=== PATIENT | male | born 2005 | race Two or more races ===

== ENCOUNTER 2024-02-19 22:10 | Emergency (ER) | payer MEDICAID, OTHER ==
[~2024-02-19] VITALS: Ht 170.2 cm; Wt 57.9 kg
[2024-02-20 00:04] LABS: Urine Bacteria FEW /hpf (None Seen); Urine Blood Negative /uL (Negative); Urine Clarity Clear (Clear); Urine Color Yellow (Yellow); Urine Hyaline Cast FEW /lpf (0 - 2); Urine Mucus FEW (None Seen); Urine Protein, UAD TRACE (Negative); Urine Specific Gravity 1.024 (1.001-1.035); Urine Urobilinogen 4 mg/dL (Negative); Urine WBC <1 /hpf (0 - 3)
[2024-02-20 00:10] LABS: Basophils # (auto) 0.1 10 ^3/uL (0-0.2); Basophils % (auto) 0.6 % (0.0-2.0); Eosinophils # (auto) 0 10 ^3/uL (0-0.8); Eosinophils % (auto) 0.4 % (0.0-7.0); Hematocrit 48.2 % (41.0-53.0); Lymphocytes # (auto) 2.4 10 ^3/uL (0.4-5.4); Lymphocytes % (auto) 27.7 % (10.0-50.0); Mean Corpuscular Hgb Conc. 35.2 g/dL (32.0-36.0); Mean Corpuscular Volume 90.9 fL (80.0-100.0); Monocytes # (auto) 0.6 10 ^3/uL (0-1.3); Monocytes % (auto) 6.6 % (0.0-12.0); Neutrophils # (auto) 5.7 10 ^3/uL (1.6-8.6); Neutrophils % (auto) 64.7 % (37.0-80.0); Nucleated Red Blood Cells % 0.1 %; White Blood Cell 8.8 10^3/uL (4.4-10.8)
[2024-02-20 00:28] LABS: Alanine Aminotransferase < 9 U/L (7-40); Albumin 5.1 g/dL (3.2-4.8); Alkaline Phosphatase 60 U/L (46-116); Anion Gap 9 (5-15); Aspartate Aminotransferase 10 U/L (13-40); BUN/Creatinine Ratio 13.2 (10.0-20.0); Bilirubin, Total 1.3 mg/dL (0.2-1.0); Blood Urea Nitrogen 10 mg/dL (9-23); Calcium 10.4 mg/dL (8.7-10.4); Carbon Dioxide 28 mmol/L (20-30); Chloride 102 mmol/L (98-107); Glucose 104 mg/dL (74-106); Lipase 27 U/L (12-53); Potassium 3.1 mmol/L (3.5-5.1); Sodium 139 mmol/L (136-145); Total Protein 7.8 g/dL (5.7-8.2)
[2024-02-20 00:52] LABS: Rapid Strep A Screen-Throat Positive
[2024-02-20] MEDS: DexAMETHasone SOD PHOS 10MG/1ML VIAL INJ IM ONE (02:43)
[2024-02-20] MEDS: cefTRIAXone SOD 1,000 MG VL IM ONE (02:43)
[2024-02-20 03:17] VITALS: BP 134/79; PULSE 78; RESP 18; TEMP 98; O2SAT 99
[2024-02-20] MEDS ORDERED: PRED20TA2 PO (04:08)
[2024-02-20] MEDS ORDERED: DICY10CA PO (04:08)
[2024-02-20] MEDS ORDERED: ZOFR4T PO (04:08)
[2024-02-20] MEDS ORDERED: BACDST PO (04:08)
[2024-02-20] MEDS ORDERED: FAMO20TA10 PO (04:08)
[2024-02-20] MEDS: POTASSIUM CHL 20 Meq TABLET PO ONE (04:12)
[2024-02-20] MEDS: AZITHROMYCIN 250 MG TAB PO ONE (04:22)
[2024-02-21] MEDS ORDERED: METO-281 PO (19:29)
[2024-02-21] MEDS ORDERED: DOXY100C PO (19:29)
[2024-02-21] MEDS ORDERED: BISM262C44 PO (21:09)
[2024-02-22 08:06] LABS: Chlamydia Trachomatis, NAA Negative (Negative); Neisseria gonorrhoeae, NAA Negative (Negative)
== END 2024-02-20 04:50 | disposition home or self-care (01) ==
LOC: ER 22:10
DX: R10.13 Epigastric pain (principal); N30.90 Cystitis, unspecified without hematuria; J02.0 Streptococcal pharyngitis; Z88.0 Allergy status to penicillin
CPT/HCPCS: 36415; 74176; 80053; 81001; 83690; 85025; 86308; 87491; 87591; 87880; 96372; 99285; J0696; J1100

== ENCOUNTER 2024-06-13 12:13 | Emergency (ER) | payer MEDICAID ==
[~2024-06-13] VITALS: Ht 170.2 cm; Wt 63.4 kg
[~2024-06-13 12:13] MED LIST: BACDST PO; BISM262C44 PO; DICY10CA PO; DOXY100C PO; FAMO20TA10 PO; METO-281 PO; PRED20TA2 PO; ZOFR4T PO
[2024-06-13 14:02] VITALS: BP 150/83; PULSE 90; RESP 18; TEMP 97.9; O2SAT 97
[2024-06-13] MEDS ORDERED: IBUP1TAB5 PO (14:12)
[2024-06-13] MEDS ORDERED: AZIT-43 PO (14:12)
[2024-06-15 07:06] LABS: RPR Non Reactive (Non Reactive)
[2024-06-15 12:07] LABS: Chlamydia Trachomatis, NAA Negative (Negative); Neisseria gonorrhoeae, NAA Negative (Negative)
== END 2024-06-13 14:40 | disposition home or self-care (01) ==
LOC: ER 12:13
DX: J02.9 Acute pharyngitis, unspecified (principal); F12.10 Cannabis abuse, uncomplicated; Z88.0 Allergy status to penicillin; Z20.6 Contact with and (suspected) exposure to human immunodeficiency virus [HIV]
CPT/HCPCS: 86592; 86703